=== PATIENT | female | born 1975 | race Caucasian/White ===

== ENCOUNTER → 2022-07-21 10:05 | Outpatient (BNVA) | payer OTHER, SELFPAY | PROVIDERS: PCP Nurse Practitioner; Visit Provider Emergency Medicine | DX: J02.9 Acute pharyngitis, unspecified (principal); J02.0 Streptococcal pharyngitis; H00.011 Hordeolum externum right upper eyelid | CPT/HCPCS: 87071; 87880 ==

== ENCOUNTER → 2023-03-01 10:10 | Outpatient (BNVA) | payer OTHER, SELFPAY | PROVIDERS: PCP Nurse Practitioner; Visit Provider Emergency Medicine | DX: J02.9 Acute pharyngitis, unspecified (principal); R09.81 Nasal congestion; J30.2 Other seasonal allergic rhinitis; R45.89 Other symptoms and signs involving emotional state | CPT/HCPCS: 87071; 87880 ==